=== PATIENT | female | born 1975 | race Caucasian/White ===

== ENCOUNTER 2018-01-09 18:14 | Emergency (ER) | payer MEDICAID, MEDICARE ==
[2018-01-09 18:54] VITALS: BP 142/85
--- NOTE | 2018-01-09 19:48 | UC ---
Back Pain HPI - HPI Summary HPI Summary: Per marketing planning manager "CHRONIC BACK PAIN T12 TO [place], HAS HAD BACK SURGERY TODAY IS HAVING SPASMATIC PAIN THAT RADIATES DOWN RIGHT LEG AND RIGHT ARM HAS AN APPT WITH HER PAIN SPECIALIST AND PRIMARY THIS COMING WEEK" -here w/ NALINI Mathias. -has appt w/ Dr Ty 01/13. she plans to go back to Dr Farr who did her neck suregrey. -increased back pain 2 days ago w/ rt radiculitis. does not get relief w/ cyclobenzaprine. takes ativan for anxiety -went to ER at [facility] last night and she was not pleased bc she was offered ibuprofen and flexiril. reports she has been to [facility] ER several times over the summer with these sx. -denies loss B/B function. no saddle parasthesias + fibromyalgia hx. was on gabapentin in past. - History of Current Complaint Chief Complaint: UCBackPain Stated Complaint: BACK PAIN Time Seen by Provider: 01/09/18 19:38 Hx Last Menstrual Period: 08/16/15 Pain Intensity: 9 - Allergies/Home Medications Allergies/Adverse Reactions: Allergies Allergy/AdvReac Type Severity Reaction Status Date / Time petrolatum,white Allergy Rash Verified 01/09/18 18:51 [From Petroleum Jelly] Sulfa (Sulfonamide Allergy Unknown Verified 01/09/18 18:51 Antibiotics) Reaction Details Home Medications: Home Medications ALPRAZolam [Xanax] 1 mg PO TID PRN 01/09/18 [History Confirmed 01/09/18] Acetaminophen [Tylenol Arthritis] 650 mg PO BID PRN 01/09/18 [History Confirmed 01/09/18] Desloratadine 5 mg PO DAILY 01/09/18 [History Confirmed 01/09/18] Esomeprazole Magnesium [Nexium] 40 mg PO DAILY 01/09/18 [History Confirmed 01/09] Norethindrone 1 each PO DAILY 01/09/18 [History Confirmed 01/09/18] PARoxetine HCL TAB* [Paxil TAB*] 40 mg PO DAILY 01/09/18 [History Confirmed ] Propranolol HCl 80 mg PO BID 01/09/18 [History Confirmed 01/09/18] buPROPion HCl [Bupropion Xl] 150 mg PO DAILY 01/09/18 [History Confirmed ] celeCOXIB CAP* [Celebrex CAP*] 100 mg PO QID 01/09/18 [History Confirmed ] PMH/Surg Hx/FS Hx/Imm Hx Previously Healthy: Yes Psychological History: Anxiety, Depression, Bipolar Disorder - Surgical History Surgical History: Yes Surgery Procedure, Year, and Place: 12/21/2014- neck surgery- herniated disc. carpal tunnel bilat. SALIVARY GLAND REMOVED - Family History Known Family History: Positive: Hypertension - Social History Alcohol Use: Occasionally Substance Use Type: Marijuana Smoking Status (MU): Heavy Every Day Tobacco Smoker Type: Cigarettes Amount Used/How Often: 1/2 pack daily Review of Systems Constitutional: Negative Skin: Negative Eyes: Negative ENT: Negative Respiratory: Negative Cardiovascular: Negative Gastrointestinal: Negative Genitourinary: Negative Motor: Negative Neurovascular: Negative Musculoskeletal: Other: - rt LBP & radicultis. rt arm numbing is chronic. Neurological: Negative Psychological: Negative Is Patient Immunocompromised?: No All Other Systems Reviewed And Are Negative: Yes Physical Exam Triage Information Reviewed: Yes Appearance: Pain Distress - lying on exam table on left side. Vital Signs: Initial Vital Signs Temp 98.2 F 01/09/18 18:45 Pulse 74 01/09/18 18:45 Resp 19 01/09/18 18:45 BP 142/85 01/09/18 18:45 Pulse Ox 100 01/09/18 18:45 Vital Signs Reviewed: Yes Eye Exam: Normal Respiratory: Positive: Lungs clear Cardiovascular Exam: Normal Abdomen Description: Positive: Nontender, Soft Musculoskeletal: Positive: Strength Intact, ROM Intact, Other: - spine NT. Rt paraspinal muscle spasm. neg SLR b.l Neurological Exam: Normal Psychological Exam: Normal Back Pain Course/Dx - Course Course Of Treatment: chronic LBP w/ acute exac of rt radiculitis. -toradol 30mgs IM x 1 now. denies renal or bleeding problems. aware of risk of kidney disease and bleeding w/ both and she is agreeable. -cyclobenzaprin 10mgs x 1 now. -dc home w/ tizanadine 2mgs TID prn #15. no driving while on these meds. BF will drive her home. -keep f/u w/ pcp in 5 days w/ f/u with Dr Farr ( neurosrgeon) again. -they are very agreeable w/ plan - Differential Dx/Diagnosis Differential Diagnosis/HQI/PQRI: Herniated Disc, Strain, Sprain Provider Diagnoses: Chronic Rt LBP w/ rt radiculitis Discharge - Sign-Out/Discharge Documenting (check all that apply): Patient Departure All imaging exams completed and their final reports reviewed: No Studies - Discharge Plan Condition: Stable Disposition: HOME Prescriptions: tiZANidine TAB* [Zanaflex TAB*] 2 mg PO TID PRN 5 Days #15 tab PRN Reason: Pain Patient Education Materials: Lumbar Radiculopathy (ED) Referrals: Reese Ty MD [Primary Care Provider] - 4 Days Additional Instructions: -No driving within 8-12 hrs of taking a tizanadine. -no ibuporfen, advil or aleve while on celebrex. -I agree with your plan of following up with Dr Ty and Dr Farr. - Billing Disposition and Condition Condition: STABLE Disposition: Home
[2018-01-09] MEDS ORDERED: Cyclobenzaprine TAB* 10 MG PO ONE (20:03)
[2018-01-09] MEDS ORDERED: Ketorolac INJ* 30 MG/ML 1 ML VIAL IM ONE (20:03)
== END 2018-01-09 20:30 | disposition home or self-care (01) ==
LOC: UCCORT 18:14
DX: M54.5 Low back pain (principal); F41.9 Anxiety disorder, unspecified; F31.9 Bipolar disorder, unspecified; M79.7 Fibromyalgia; M54.16 Radiculopathy, lumbar region; F17.210 Nicotine dependence, cigarettes, uncomplicated; F12.90 Cannabis use, unspecified, uncomplicated; R20.0 Anesthesia of skin; Z88.2 Allergy status to sulfonamides; Z91.048 Other nonmedicinal substance allergy status
CPT/HCPCS: 96372; 99212; A9270-GY; G0463; J1885